=== PATIENT | female | born 1980 | race Caucasian/White ===

== ENCOUNTER 2018-05-08 16:37 | Emergency (ER) | payer OTHER ==
--- NOTE | 2018-05-08 17:22 | EDM.PDOC ---
<Ivana Fajardo - Last Filed: 05/09/18 07:45> ED HPI GENERAL MEDICAL PROBLEM - General Chief Complaint: Back Pain or Injury Stated Complaint: LOWER BACK PAIN Time Seen by Provider: 05/08/18 17:30 Source of Information: Reports: Patient History Limitations: Reports: No Limitations - History of Present Illness INITIAL COMMENTS - FREE TEXT/NARRATIVE: 37 yo female presents with low back pain x 1 week. It began last week when she was going from squatting to standing, holding no weight. She believes it has been getting progressively worse over the past week. She describes it as an aching band across her lower back with intermittent sharp pain on the right side. The pain is not induced by palpation and she said it feels "deep." She has been taking 1,000mg ibuprofen for pain with no relief. She is from [place] and had been on a camping trip and is trying to drive home but had to stop because of the pain. She has a history of MS and mild chronic back pain, but does not believe it has ever felt like this or been this bad. She expressed some concern about a possible kidney stone. She denies loss of bowel or bladder control. She reports chronic numbness and tingling from MS, but no change from baseline. Onset: Sudden Duration: Week(s): (1 week ago), Getting Worse Location: Reports: Back Quality: Reports: Ache, Sharp (intermittent sharp pains) Severity: Moderate Improves with: Reports: None Worsens with: Reports: Other (lying flat), Movement Context: Reports: Other Associated Symptoms: Reports: No Other Symptoms Treatments [employer]: Reports: NSAIDS Lower Back Pain Score (Numeric/FACES): 9 - Related Data Allergies Allergy/AdvReac Type Severity Reaction Status Date / Time Sulfa (Sulfonamide Allergy Cannot Verified 05/08/18 16:47 Antibiotics) Remember Home Meds: Home Meds Acetaminophen/oxyCODONE [Percocet 325-5 MG] 1 tab PO Q4HR PRN #15 tab 05/08/18 [ Rx] Orphenadrine [Norflex] 100 mg PO BID PRN #20 tab.er 05/08/18 [Rx] Venlafaxine [Effexor XR] 1.5 tab PO DAILY 05/08/18 [History] Past Medical History Neurological History: Reports: MS - Past Surgical History Female Surgical History: Reports: Section ED ROS GENERAL - Review of Systems Review Of Systems: See Below Constitutional: Reports: No Symptoms, Other (She has been camping and is unsure if she has felt feverish or chills) HEENT: Reports: No Symptoms Respiratory: Reports: No Symptoms Cardiovascular: Reports: No Symptoms GI/Abdominal: Reports: Constipation. Denies: Abdominal Pain, Bloody Stool, Diarrhea : Reports: No Symptoms. Denies: Dysuria, Frequency, Urgency Musculoskeletal: Reports: Back Pain (low back pain, R>L) Skin: Reports: No Symptoms Neurological: Reports: Numbness, Paresthesia (chronic secondary to MS). Denies : Weakness ED EXAM,LOWER BACK PAIN/INJURY - Physical Exam Exam: See Below Exam Limited By: No Limitations General Appearance: Alert, WD/WN, Mild Distress Ears: Normal External Exam, Hearing Grossly Normal Neck: Normal Inspection, Supple, Full Range of Motion Respiratory/Chest: No Respiratory Distress, Lungs Clear, Normal Breath Sounds, No Accessory Muscle Use, Splinting (mild ) Cardiovascular: Regular Rate, Rhythm, No Edema, No Gallop, No Murmur, No Rub Back Exam: Normal Inspection, Decreased Range of Motion, Other. No: Paraspinal Tenderness, Vertebral Tenderness Extremities: Normal Inspection, Normal Range of Motion Neurological: Alert, Normal Mood/Affect, No Motor/Sensory Deficits Psychiatric: Normal Affect, Normal Mood Skin Exam: Warm, Dry, Intact, Normal Color Course - Vital Signs Last Recorded V/S: Last Vital Signs Temp 97.6 F 05/08/18 16:43 Pulse 61 05/08/18 20:05 Resp 15 05/08/18 20:05 BP 123/87 05/08/18 20:05 Pulse Ox 100 05/08/18 20:05 - Orders/Labs/Meds Labs: Laboratory Tests 05/08/18 Range/Units 17:20 Urine Color Light yellow (Yellow) Urine Appearance Clear (Clear) Urine pH 7.0 (5.0-8.0) Ur Specific Hope 1.020 (1.005-1.030) Urine Protein Negative (Negative) Urine Glucose (UA) Negative (Negative) Urine Ketones Negative (Negative) Urine Occult Blood Negative (Negative) Urine Nitrite Negative (Negative) Urine Bilirubin Negative (Negative) Urine Urobilinogen 0.2 (0.2-1.0) Ur Leukocyte Esterase Negative (Negative) Urine RBC Not seen (0-5) /hpf Urine WBC Not seen (0-5) /hpf Ur Epithelial Cells 0-5 (0-5) /hpf Urine Bacteria Not seen (FEW) /hpf Urine Mucus Not seen (FEW) /hpf Meds: Medications Discontinued Medications Generic Name Dose Route Start Last Admin Trade Name Freq PRN Reason Stop Dose Admin Hydromorphone HCl 0.5 mg 05/08/18 17:41 05/08/18 18:01 Dilaudid IVPUSH 05/08/18 17:42 0.5 mg ONETIME ONE Administration Ketorolac Tromethamine 30 mg 05/08/18 17:41 05/08/18 18:00 Toradol IVPUSH 05/08/18 17:42 30 mg ONETIME ONE Administration Orphenadrine Citrate 100 mg 05/08/18 19:15 05/08/18 19:26 Norflex PO 05/08/18 19:16 100 mg ONETIME ONE Administration Sodium Chloride 10 ml 05/08/18 17:41 05/08/18 18:39 Saline Flush FLUSH 10 ml ASDIRECTED PRN Administration Keep Vein Open Departure - Departure Time of Disposition: 19:45 Disposition: Home, Self-Care 01 Condition: Fair Clinical Impression: Muscle spasm of back - Discharge Information Prescriptions: Acetaminophen/oxyCODONE [Percocet 325-5 MG] 1 tab PO Q4HR PRN #15 tab PRN Reason: Pain Orphenadrine [Norflex] 100 mg PO BID PRN #20 tab.er PRN Reason: Muscle Spasm Instructions: Muscle Cramps and Spasms, Sywa-vs-Xior Referrals: PCP,Not In Area [Primary Care Provider] - Forms: ED Department Discharge Additional Instructions: Your given medication ER that can affect your ability drive and operate machinery. Do not drive or operate machinery within 12 hours of taking perception narcotic pain medication. Norflex 1 tab twice a day as needed for muscle pain and spasms. Norflex may make you drowsy. Do not drive or operate machinery until you know how this medication will affect. You may take [id number] ibuprofen or Aleve as needed for pain. For pain not relieved by Tylenol or Motrin may take Percocet 1-2 tabs every 4-6 hours. Percocet is habit-forming, take as few of these as needed to control your pain. Do not take 4 g Tylenol from one day. Do not take more than 3200 mg of ibuprofen all sources in 1 day. Follow-up with your primary care provider within one week for recheck of your symptoms. Recommend heat to the back for additional pain relief. May also use topical products such as Icyhot or BenGay. Please return to the ER for symptoms change or worsen. <Carolyn Graf - Last Filed: 05/11/18 17:49> ED HPI GENERAL MEDICAL PROBLEM - History of Present Illness INITIAL COMMENTS - FREE TEXT/NARRATIVE: I have seen the patient and agree with the HPI as documented by PAULA Mutlani. Additionally the patient reports to me that the back pain came on gradually. Course - Re-Assessments/Exams Free Text/Narrative Re-Assessment/Exam: 05/08/18 19:46 I have seen the patient and agree with the HPI, ROS and PE as documented by PAULA Multani. I checked the patient. She states she is feeling better. States the pain is tolerable. I did have Ivana check on her earlier and she was still having some discomfort with movement and therefore we gave her Norflex. This seems to have helped her a great amount. At this point will discharge her home with some Percocet as needed for pain and some muscle relaxers. Discharge instructions as documented. Departure - Departure Time of Disposition: 19:47 Condition: Fair
[2018-05-08] MEDS ORDERED: Ketorolac 30 MG/ML SDV IVPUSH ONE (17:41)
[2018-05-08] MEDS ORDERED: Sodium Chloride 0.9% 10 ML Syringe FLUSH PRN (17:41)
[2018-05-08] MEDS ORDERED: HYDROmorphone 0.5 MG/0.5 ML SYRINGE IVPUSH ONE (17:41)
[2018-05-08] MEDS ORDERED: Orphenadrine 100 MG Tab.ER PO ONE (19:15)
== END 2018-05-08 20:10 | disposition home or self-care (01) ==
LOC: JD.ED 16:37
DX: M62.830 Muscle spasm of back (principal); Z88.2 Allergy status to sulfonamides
CPT/HCPCS: 81001; 96374; 96375; 99284; A9270; J1170; J1885; J7050